=== PATIENT | male | born 1945 | race Caucasian/White ===

== ENCOUNTER 2023-12-28 08:58 | Day surgery (SDC) | payer MEDICARE, BC ==
[2023-12-21 10:49] LABS: BASOPHILS # (AUTO) 0.1 X10'3 (0-0.2); BASOPHILS % (AUTO) 1.1 % (0-1); EOSINOPHILS # (AUTO) 0.1 X10'3 (0-0.9); EOSINOPHILS % (AUTO) 1.9 % (0-6); LYMPHOCYTES # (AUTO) 1.3 X10'3 (1.1-4.8); LYMPHOCYTES % (AUTO) 27.1 % (21-51); MEAN CORPUSCULAR HEMOGLOBIN 31.3 PG (27.0-31.0); MEAN CORPUSCULAR HGB CONC 33.7 g/dL (33.0-36.5); MEAN PLATELET VOLUME 8.2 FL (7.4-10.4); MONOCYTES # (AUTO) 0.4 X10'3 (0-0.9); MONOCYTES % (AUTO) 7.9 % (2-12); NEUTROPHILS # (AUTO) 2.9 X10'3 (1.8-7.7); PRE OP HEMATOCRIT 42.6 % (42.0-52.0); PRE OP HEMOGLOBIN 14.4 g/dL (14.0-17.9); PRE OP PLATELET COUNT 183 X10'3 (140-440); PRE OP WHITE BLOOD COUNT 4.7 10'3 (4.8-10.8); RED BLOOD COUNT 4.58 X10'6 (4.70-6.10); RED CELL DISTRIBUTION WIDTH 13.6 % (11.5-14.5)
[2023-12-21 11:05] LABS: ALBUMIN 4.1 G/DL (3.4-5.0); ALKALINE PHOSPHATASE 135 IU/L (46-116); BLOOD UREA NITROGEN 30 MG/DL (7-18); BUN/CREATININE RATIO 26.3 (10.0-20.0); CALCIUM 9.7 MG/DL (8.5-10.1); CHLORIDE 102 MMOL/L (99-107); CREATININE 1.14 MG/DL (0.60-1.10); PRE OP ALT 15 U/L (30-65); PRE OP ANION GAP 7 (8-16); PRE OP AST 20 U/L (10-37); PRE OP BILIRUB, TOTAL 0.7 MG/DL (0.0-1.0); PRE OP GLUCOSE 79 MG/DL (70-104); PRE OP POTASSIUM 5.1 MMOL/L (3.4-5.1); PRE OP SODIUM 137 MMOL/L (135-145); TOTAL CARBON DIOXIDE 27.7 MMOL/L (24-32); TOTAL PROTEIN 8.3 G/DL (6.4-8.2); eGFR 62 ML/MIN
[~2023-12-28] VITALS: Ht 177.8 cm; Wt 49.5 kg
[2023-12-28] VITALS (13 sets, daily range): BP systolic 126–175; BP diastolic 70–91; PULSE 60–111; RESP 12–25; TEMP 97.9; O2SAT 92–100
[~2023-12-28 08:58] MED LIST: INDO50CA96 PO; UMEC1DIS PO
[2023-12-28] MEDS: famotidine 20mg tablet PO ONE (09:45)
[2023-12-28] MEDS: ringers solution, lacted 1,000 ML IV SCH ×2 (09:45→12:47)
[2023-12-28] MEDS ORDERED: hydrALAZINE 20mg/ml inj. IV PRN (11:00)
[2023-12-28] MEDS ORDERED: morphine 2 MG/ML inj. syringe IV PRN (11:00)
[2023-12-28] MEDS ORDERED: proCHLORperazine 10 MG/2 ml inj IV PRN (11:00)
[2023-12-28] MEDS ORDERED: meperidine/PF 25mg/ml syringe IV PRN ×3 (11:00)
[2023-12-28] MEDS ORDERED: labetalol 20mg/4ml (5mg/ml) syringe IV PRN (11:00)
[2023-12-28] MEDS ORDERED: ondansetron/PF 4mg/2ml inj IV PRN (11:00)
[2023-12-28] MEDS ORDERED: fentaNYL/PF 50MCG/1 ML 2ML syringe ONE (11:04)
[2023-12-28] MEDS ORDERED: midazolam 1 mg/ML 2ml injection ONE (11:05)
[2023-12-28] MEDS ORDERED: sevoflurane 250ml liquid IH ONE (11:16)
[2023-12-28] MEDS ORDERED: propofol inj 20 ML IV ONE (11:44)
[2023-12-28] MEDS ORDERED: rocuronium 10mg/ml inj IV ONE (11:44)
[2023-12-28] MEDS ORDERED: LIDOcaine 2% (20mg/ml) 5ml vial ONE (11:44)
[2023-12-28] MEDS ORDERED: ePHEDrine 50MG/ML INJ. ONE (11:45)
[2023-12-28] MEDS ORDERED: dexamethasone sod phosphate 4mg/ml inj. ONE (11:46)
[2023-12-28] MEDS ORDERED: ondansetron/PF 4mg/2ml inj ONE (11:46)
[2023-12-28] MEDS: acetaminophen 1,000mg/100ml IV 100 ML IV ONE (12:47)
== END 2023-12-28 13:45 | disposition home or self-care (01) ==
LOC: PAS 08:58
PROVIDERS: ATTEND Internal Medicine Critical Care Medicine
DX: R91.8 Other nonspecific abnormal finding of lung field (principal); C34.11 Malignant neoplasm of upper lobe, right bronchus or lung; I45.10 Unspecified right bundle-branch block; J44.9 Chronic obstructive pulmonary disease, unspecified; M10.9 Gout, unspecified; Z79.899 Other long term (current) drug therapy
CPT/HCPCS: 31624; 31627; 31652; 36415; 71045; 71250; 80053; 82948; 85025; 87070; 87077; 87185; 87186; 88341; 93005; 94760; J0131; J1100; J2250; J2405; J2704; J2710; J3010; J3490; J7120; Z7506; Z7512; 31622; 31625; 31626; 31628; 31635; 31645; 31653; 31654; 88173; 88305; 88342; A4618

== ENCOUNTER 2024-01-31 09:01 | Outpatient (CLI) | payer MEDICARE, BC ==
[2024-01-31 09:26] LABS: ABG BASE EXCESS -0.3 mmol/L (-2.0-2.0); ABG OXYGEN SATURATION 95.7 % (94-97); ABG PCO2 (T) 38.5 mmHg (35.0-48.0); ABG PH (T) 7.413 (7.340-7.440); ABG PO2 (T) 79.7 mmHg (75.0-100.0); ALLEN'S TEST POSITIVE; FCOHb 4.5 % (0.0-3.9); FHHb 4.1 % (0.0-5.0); FMetHb 0.2 % (0.0-1.5); FO2Hb 91.2 % (94-97); MODE ROOM AIR; TOTAL HEMOGLOBIN 14.7 G/dl (14.0-17.9)
== END 2024-01-31 23:59 | disposition home or self-care (01) ==
LOC: RT 09:01
PROVIDERS: ATTEND Surgery
DX: J98.4 Other disorders of lung (principal)
CPT/HCPCS: 36600; 82803; 85018